=== PATIENT | male | born 1960 | race African-American/Black ===

== ENCOUNTER → 2017-04-28 | Day surgery (SDC) | payer OTHER ==
[~2017-04-28] MED LIST: LOSARTAN POTASS50 MG PO
--- NOTE | ~2017-04-28 | OR ---
Unit #: [id number] #: [id number] Patient: SNOW BARBER [id number] [address] [address] [id number] O MR#: [id number] NAME: SNOW BARBER ROOM: Date of Procedure: 04/28/2017 Admission Date: 04/28/2017 Surgeon: Lauri Hernandez M.D. : 1960 Attending Physician: Lauri Hernandez M.D. OPERATIVE REPORT PROCEDURE PERFORMED Colonoscopy with snare polypectomy. INDICATIONS FOR PROCEDURE History of colon polyps. MEDICATIONS Monitored Anesthesia. POSTOPERATIVE FINDINGS 1. Polyp cecum snared and sent for histology. 2. 3 polyps sigmoid colon, snared and sent for histology. 3. Poor prep leading to suboptimal exam. PLAN Repeat colonoscopy in 3 years. Follow up on pathology report. DESCRIPTION OF PROCEDURE The patient was explained of the procedure, risks, and benefits along with the risks and benefits of anesthesia. He was brought to the endoscopy room. Propofol anesthesia was given. Rectal exam was done, which was normal. Colonoscope was lubricated, passed through the rectum, advanced under direct vision all the way to the cecum. Cecum was identified by ileocecal valve and appendiceal orifice. I then started to pull the scope out carefully looking. Polyps in the cecum and sigmoid were snared and sent for histology. Poor prep, which led to suboptimal exam in several areas. I retroflexed in the rectum. Small hemorrhoids seen. The scope was gently pulled out. He tolerated it well. Dictated by... Armaan Banks/yair TD: 04/28/2017 16:01 JOB #: [id number] CC: Joaquin Limon Aprn Unit #: [id number] #: [id number] Patient: SONW BARBER OPERATIVE REPORT Page 1 of 1 X Lauri Hernandez MD PROCEDURE OPERATIVE NOTE
== END | disposition home or self-care (01) ==
LOC: COPS 12:33
DX: Z12.11 Encounter for screening for malignant neoplasm of colon (principal); D12.7 Benign neoplasm of rectosigmoid junction; K63.5 Polyp of colon; K64.9 Unspecified hemorrhoids; I10 Essential (primary) hypertension; E66.9 Obesity, unspecified; F17.210 Nicotine dependence, cigarettes, uncomplicated; Z86.010 Personal history of colon polyps; Z79.899 Other long term (current) drug therapy
CPT/HCPCS: 88305